=== PATIENT | male | born 1955 | race Caucasian/White ===

== ENCOUNTER → 2020-11-12 | Outpatient (CLI) | payer MEDICARE ==
[~2020-11-12] MED LIST: ACET325T14 PO; ALBU8.5H8 INH; BUDE10.7 INH; CEFD300C37 PO; DOXY100T PO; HYDR-3248 PO; IBUP-1223 PO; OMEP40CA42 PO
== END | disposition home or self-care (01) ==
LOC: CFH 13:44
PROVIDERS: ATTEND Internal Medicine
DX: R91.8 Other nonspecific abnormal finding of lung field (principal); R91.1 Solitary pulmonary nodule
CPT/HCPCS: 71250

== ENCOUNTER 2020-11-13 09:11 | Day surgery (SDC) | payer MEDICARE ==
[~2020-11-13] VITALS: Ht 175.3 cm; Wt 106.4 kg
[2020-11-13] MEDS ORDERED: ONDANSETRON 2MG/ML, 2ML ONE (10:04)
[2020-11-13] MEDS ORDERED: ROCURONIUM 10MG/ML,5ML ONE (10:04)
[2020-11-13] MEDS ORDERED: OMEP40CA42 PO (10:04)
[2020-11-13] MEDS ORDERED: PROPOFOL 10 MG/ML, 20ML ONE (10:04)
[2020-11-13] MEDS ORDERED: HYDR-3248 PO (10:04)
[2020-11-13] MEDS ORDERED: BUDE10.7 INH (10:04)
[2020-11-13] MEDS ORDERED: ALBU8.5H8 INH (10:04)
[2020-11-13] MEDS ORDERED: NEOSTIGMINE 1 MG/ML, 10ML ONE (10:04)
[2020-11-13] MEDS ORDERED: SUCCINYLCHOLINE 20 MG/ML, 10ML ONE (10:04)
[2020-11-13] MEDS ORDERED: GLYCOPYRROLATE 0.2MG/1ML, 5ML ONE (10:04)
[2020-11-13] MEDS ORDERED: CEFAZOLIN 1,000 MG ONE (10:04)
[2020-11-13] MEDS ORDERED: DEXAMETHASONE 4 MG/ML, 1ML ONE (10:04)
[2020-11-13] MEDS ORDERED: CEFD300C37 PO (10:05)
[2020-11-13] MEDS ORDERED: DOXY100T PO (10:05)
[2020-11-13] MEDS ORDERED: IBUP-1223 PO (10:24)
[2020-11-13] MEDS ORDERED: ACET325T14 PO (10:24)
[2020-11-13 10:26] VITALS: BP 121/74
[2020-11-13] MEDS ORDERED: CHLORHEXIDINE 15 ML UDC MM ONE (10:30)
[2020-11-13] MEDS ORDERED: LACTATED RINGERS 1,000 ML IV SCH (10:30)
[2020-11-13] MEDS ORDERED: MIDAZOLAM 1 MG/ML, 2ML ONE (10:50)
[2020-11-13] MEDS ORDERED: FENTANYL PF 100 MCG/2ML ONE (10:50)
[2020-11-13] MEDS ORDERED: LIDOCAINE 4%, 4 ML SYR/CANN TP ONE (10:51)
[2020-11-13] MEDS ORDERED: LIDOCAINE GEL 2%, 5ML ONE (10:51)
[2020-11-13] MEDS ORDERED: HYDROmorphone 1 MG/ML, 1ML INJ IVPush PRN (11:30)
[2020-11-13] MEDS ORDERED: FENTANYL PF 100 MCG/2ML IV PRN (11:30)
[2020-11-13] MEDS ORDERED: ONDANSETRON 2MG/ML, 2ML IVPush PRN (11:30)
[2020-11-13] MEDS ORDERED: PROMETHAZINE 25 MG/ML, 1ML IVPush PRN (11:30)
[2020-11-13] MEDS ORDERED: OXYcodone 5 MG/5 ML ORAL.SOL UDC PO PRN (11:30)
[2020-11-13] MEDS ORDERED: HYDROcodone/APAP 7.5-325MG/15ML UDC PO PRN (11:30)
[2020-11-13] MEDS ORDERED: MEPERIDINE/PF 25MG/0.5ML IVPush PRN (11:30)
[2020-11-13] MEDS ORDERED: SUGAMMADEX 200 MG/2 ML IVPush ONE (11:57)
== END 2020-11-13 14:08 | disposition home or self-care (01) ==
LOC: OUT 09:11
PROVIDERS: ATTEND Internal Medicine
DX: R91.8 Other nonspecific abnormal finding of lung field (principal); C96.9 Malignant neoplasm of lymphoid, hematopoietic and related tissue, unspecified; G47.33 Obstructive sleep apnea (adult) (pediatric); J44.9 Chronic obstructive pulmonary disease, unspecified; M19.90 Unspecified osteoarthritis, unspecified site; Z88.1 Allergy status to other antibiotic agents; Z20.822 Contact with and (suspected) exposure to COVID-19; Z79.899 Other long term (current) drug therapy; Z72.89 Other problems related to lifestyle; Z87.891 Personal history of nicotine dependence; Z98.890 Other specified postprocedural states
CPT/HCPCS: 31652; 71045; 87635; 88172; 88173; 88305; J0330; J0690; J1100; J2250; J2405; J2704; J2710; J3010; J7120; 31625; 88341; 88342

== ENCOUNTER → 2020-12-09 | Outpatient (CLI) | payer MEDICARE | END | disposition home or self-care (01) | LOC: ROC 08:05 | PROVIDERS: ATTEND Radiology Radiation Oncology | DX: C34.11 Malignant neoplasm of upper lobe, right bronchus or lung (principal); J44.9 Chronic obstructive pulmonary disease, unspecified; M19.90 Unspecified osteoarthritis, unspecified site; Z79.899 Other long term (current) drug therapy; Z72.89 Other problems related to lifestyle; Z87.891 Personal history of nicotine dependence | CPT/HCPCS: 99214; G0463 ==

== ENCOUNTER → 2020-12-29 | Outpatient (CLI) | payer MEDICARE | END | disposition home or self-care (01) | LOC: RAD 15:19 | PROVIDERS: ATTEND Internal Medicine Hematology & Oncology | DX: C34.11 Malignant neoplasm of upper lobe, right bronchus or lung (principal); J44.9 Chronic obstructive pulmonary disease, unspecified; R94.5 Abnormal results of liver function studies; Z79.899 Other long term (current) drug therapy; Z51.11 Encounter for antineoplastic chemotherapy | CPT/HCPCS: 71045 ==